=== PATIENT | female | born 1980 | race African-American/Black ===

== ENCOUNTER 2023-05-31 11:30 | Inpatient (IN) | payer OTHER ==
[2023-05-31 12:04] VITALS: BMI 25.7
[2023-05-31] MEDS ORDERED: METOPROLOL TARTRATE 50 MG TABLET (FP) PO ONE (12:18)
[2023-05-31] MEDS ORDERED: LOPERAMIDE HCL 2 MG CAPSULE PO PRN (12:32)
[2023-05-31] MEDS ORDERED: BENZOCAINE/MENTHOL (CHLORASEPTIC ) LOZENGE MM PRN (12:32)
[2023-05-31] MEDS ORDERED: IBUPROFEN 400 MG TABLET (FP) PO PRN (12:32)
[2023-05-31] MEDS ORDERED: guaiFENesin 600 MG TABLET.ER (FP) PO PRN (12:32)
[2023-05-31] MEDS ORDERED: DICYCLOMINE HCL 10 MG CAPSULE PO PRN (12:32)
[2023-05-31] MEDS ORDERED: BISMUTH SUBSALICYLATE 524 MG/30 ML PO PRN (12:32)
[2023-05-31] MEDS ORDERED: POLYETHYLENE GLYCOL (HEALTHYLAX) 3350 17 GM PACKET PO PRN (12:32)
[2023-05-31] MEDS ORDERED: ACETAMINOPHEN 325 MG TABLET (FP) PO PRN (12:32)
[2023-05-31] MEDS ORDERED: P-EPHED 60MG/TRIPROLIDI 2.5MG TABLET PO PRN (12:32)
[2023-05-31] MEDS ORDERED: BENZONATATE 200 MG CAPSULE PO PRN (12:32)
[2023-05-31] MEDS ORDERED: MAGNESIUM HYDROX 2400MG/30ML ORAL SUSPENSION 30 ML CUP PO PRN (12:32)
[2023-05-31] MEDS ORDERED: MAG HYDROX/AL HYDROX/SIMETH 30 ML UNIT-DOSE CUP PO PRN (12:32)
[2023-05-31] MEDS ORDERED: ONDANSETRON *ODT* 4 MG TABLET SL PRN (12:32)
[2023-05-31] MEDS ORDERED: METOPROLOL TARTRATE 25 MG TABLET (FP) ONE (12:35)
[2023-05-31] MEDS ORDERED: hydrOXYzine PAMOATE 25 MG CAPSULE (FP) PO ONE (13:46)
[2023-05-31] MEDS ORDERED: MELATONIN 5 MG TABLETS PO SCH (22:00)
[2023-05-31] MEDS: hydrOXYzine PAMOATE 25 MG CAPSULE (FP) PO PRN (22:46)
[2023-05-31] MEDS: THIAMINE HCL 100 MG TABLET (FP) PO SCH (22:46)
[2023-05-31] MEDS: METHOCARBAMOL 500 MG TABLET PO PRN (22:47)
[2023-06-01] MEDS: PRENATAL VITAMINS W/ FOLIC ACID TABLET (FP) PO SCH (09:29)
[2023-06-01 11:05] LABS: HEMATOCRIT 33.6 % (32.4-45.2); HEMOGLOBIN 11.4 GM/dL (10.7-15.3); MCH 31.6 pg (25.7-33.7); MCHC 33.8 g/dl (32.0-36.0); MEAN CELL VOLUME 93.3 fl (80-96); MEAN PLT VOLUME 7.4 fl (7.5-11.1); PLATELET COUNT 341 10^3/uL (134-434); RDW 13.7 % (11.6-15.6); WHITE BLOOD COUNT 4.1 K/mm3 (4.0-10.0)
[2023-06-01 11:18] LABS: CHLORIDE 107 mmol/L (98-107); POTASSIUM 4.3 mmol/L (3.5-5.1); SODIUM 140 mmol/L (136-145)
[2023-06-01 11:25] LABS: CALCIUM 8.4 mg/dL (8.5-10.1)
[2023-06-01 11:26] LABS: ANION GAP 8 mmol/L (4-13); BLOOD UREA NITROGEN 14.9 mg/dL (7-18); CO2 24 mmol/L (21-32); GLUCOSE,RANDOM 93 mg/dL (74-106)
[2023-06-01 11:29] LABS: CREATININE 0.9 mg/dL (0.55-1.3); SGOT/AST 20 U/L (15-37); SGPT/ALT 15 U/L (13-61)
[2023-06-01 11:30] LABS: BILIRUBIN,TOTAL 0.8 mg/dL (0.2-1)
[2023-06-01 11:31] LABS: TOT PROT 6.2 g/dl (6.4-8.2)
[2023-06-01 11:32] LABS: ALK PHOS 78 U/L (45-117)
[2023-06-01] MEDS ORDERED: chlordiazePOXIDE HCL 25 MG CAPSULE PO PRN (12:43)
[2023-06-01] MEDS: chlordiazePOXIDE HCL 25 MG CAPSULE PO SCH ×2 (17:30→22:42)
[2023-06-01] MEDS: IBUPROFEN 600 MG TABLET (FP) PO PRN (19:37)
[2023-06-01] MEDS: SUVOREXANT 10 MG TABLET PO PRN (22:03)
[2023-06-01] MEDS: THIAMINE HCL 100 MG TABLET (FP) PO SCH (22:42)
[2023-06-02] MEDS: chlordiazePOXIDE HCL 25 MG CAPSULE PO SCH ×4 (05:28→22:06)
[2023-06-02] MEDS: IBUPROFEN 600 MG TABLET (FP) PO PRN (09:37)
[2023-06-02] MEDS: PRENATAL VITAMINS W/ FOLIC ACID TABLET (FP) PO SCH (10:28)
[2023-06-02] MEDS: METHOCARBAMOL 500 MG TABLET PO PRN ×2 (10:28→17:35)
[2023-06-02] MEDS: hydrOXYzine PAMOATE 25 MG CAPSULE (FP) PO PRN (17:35)
[2023-06-02] MEDS: THIAMINE HCL 100 MG TABLET (FP) PO SCH (22:06)
[2023-06-02] MEDS: SUVOREXANT 10 MG TABLET PO PRN (22:06)
[2023-06-03] MEDS ORDERED: chlordiazePOXIDE HCL 10 MG CAPSULE PO PRN
[2023-06-03] MEDS: chlordiazePOXIDE HCL 10 MG CAPSULE PO SCH ×4 (05:54→22:21)
[2023-06-03] MEDS: PRENATAL VITAMINS W/ FOLIC ACID TABLET (FP) PO SCH (10:35)
[2023-06-03] MEDS: METHOCARBAMOL 500 MG TABLET PO PRN (16:57)
[2023-06-03] MEDS: THIAMINE HCL 100 MG TABLET (FP) PO SCH (21:44)
[2023-06-03] MEDS: SUVOREXANT 10 MG TABLET PO PRN (21:45)
[2023-06-04] MEDS: chlordiazePOXIDE HCL 10 MG CAPSULE PO SCH ×2 (04:53→18:57)
[2023-06-04] MEDS: IBUPROFEN 600 MG TABLET (FP) PO PRN (05:00)
[2023-06-04] MEDS: PRENATAL VITAMINS W/ FOLIC ACID TABLET (FP) PO SCH (10:55)
[2023-06-04] MEDS: METHOCARBAMOL 500 MG TABLET PO PRN (18:57)
[2023-06-04] MEDS: hydrOXYzine PAMOATE 25 MG CAPSULE (FP) PO PRN (18:57)
[2023-06-04] MEDS: THIAMINE HCL 100 MG TABLET (FP) PO SCH (22:20)
[2023-06-05] MEDS ORDERED: chlordiazePOXIDE HCL 10 MG CAPSULE PO ONE (05:00)
[2023-06-05] MEDS: PRENATAL VITAMINS W/ FOLIC ACID TABLET (FP) PO SCH (09:54)
[2023-06-05 10:16] VITALS: BP 119/74; PULSE 83; RESP 19; TEMP 98.9
== END 2023-06-05 10:31 | disposition home or self-care (01) | DRG 774 ==
LOC: YASAS 11:30 → Y6N 12:43
PROVIDERS: ADMIT Allergy & Immunology; ATTEND Surgery
PROC: HZ2ZZZZ Detoxification Services for Substance Abuse Treatment (ICD-10-PCS; principal; 2023-05-31)
DX: F10.230 Alcohol dependence with withdrawal, uncomplicated (principal); F14.20 Cocaine dependence, uncomplicated; F17.210 Nicotine dependence, cigarettes, uncomplicated; F19.282 Other psychoactive substance dependence with psychoactive substance-induced sleep disorder; F19.24 Other psychoactive substance dependence with psychoactive substance-induced mood disorder; F32.9 Major depressive disorder, single episode, unspecified; U07.1 COVID-19; I10 Essential (primary) hypertension; Z91.410 Personal history of adult physical and sexual abuse; Z63.8 Other specified problems related to primary support group
CPT/HCPCS: 36415; 80053; 80307; 85027; 86780; 87635